=== PATIENT | male | born 1960 | race Caucasian/White ===

== ENCOUNTER → 2018-11-27 | Outpatient (CLI) | payer OTHER | LOC: CAT 08:14 | DX: Z13.6 Encounter for screening for cardiovascular disorders (principal); E78.00 Pure hypercholesterolemia, unspecified; I25.10 Atherosclerotic heart disease of native coronary artery without angina pectoris ==

== ENCOUNTER → 2019-02-01 | Outpatient (CLI) | payer BC ==
--- NOTE | 2019-02-01 11:55 | 2DMMODE ---
[facility] [address] [place] [address] 2 D/M-MODE ECHOCARDIOGRAM Name: YOLANDA MCDONALD Room #: REG [facility]#: [id number] Admission: 02/01/19 Attend Phys: Jamie Henderson MD Discharge: Date of : 62 Report #: [id number] THIS REPORT FOR: //name// APPROVED REPORT Study performed: 02/01/2019 10:29:11 EXAM: Comprehensive 2D, Doppler, and color-flow Echocardiogram Patient Location: Out-Patient Room #: Echo lab 2 Status: routine BSA: 1.81 HR: 72 bpm BP: 132/82 mmHg Rhythm: NSR Other Information Study Quality: Good Indications Elevated calcium score 2D Dimensions RVDd: 30.89 mm IVSd: 9.92 (7-11mm) LVOT Diam: 20.41 (18-24mm) LVDd: 48.61 mm PWd: 6.86 (7-11mm) Ascending Ao: 33.00 (22-36mm) LVDs: 32.15 (25-40mm) Aortic Root: 34.97 mm IVC: 14.00 mm Volumes Left Atrial Volume (Systole) Single Plane 4CH: 40.24 mL Single Plane 2CH: 50.56 mL LA ESV Index: 28.00 mL/m2 Aortic Valve AoV Peak Dejan.: 1.07 m/s AO Peak Gr.: 4.54 mmHg LVOT Max P.51 mmHg LVOT Max V: 0.94 m/s SALVATORE Vmax: 2.88 cm2 Mitral Valve E/A Ratio: 1.4 MV Decel. Time: 245.98 ms MV E Max Dejan.: 0.76 m/s [facility] [address] [place] [address] 2 D/M-MODE ECHOCARDIOGRAM Name: YOLANDA MCDONALD Room #: REG [facility]#: [id number] Admission: 02/01/19 Attend Phys: Jamie Henderson MD Discharge: Date of : 62 Report #: [id number] MV A Dejan.: 0.55 m/s MV PHT: 71.33 ms IVRT: 83.04 ms Pulmonary Valve PV Peak Dejan.: 0.96 m/s PV Peak Gr.: 3.71 mmHg Pulmonary Vein P Vein S: 0.26 m/s P Vein A: 0.25 m/s P Vein D: 0.45 m/s P Vein A Dur.: 96.9 msec P Vein S/D Ratio: 0.58 Tricuspid Valve TR Peak Dejan.: 2.32 m/s TR Peak Gr.: 21.47 mmHg PA Pressure: 26.00 mmHg Left Ventricle The left ventricle is normal size. There is normal LV segmental wall motion. There is normal left ventricular wall thickness. The left ventricular systolic function is normal. The left ventricular ejection fraction is within the normal range. LVEF is 60-65%. The left ventricular diastolic function is normal. Right Ventricle The right ventricle is normal size. The right ventricular systolic function is normal. Atria The left atrium size is normal. The right atrium size is normal. Aortic Valve The aortic valve is normal in structure. No aortic regurgitation is present. There is no aortic valvular stenosis. Mitral Valve The mitral valve is normal in structure. Mild mitral regurgitation. No evidence of mitral valve stenosis. Tricuspid Valve The tricuspid valve is normal in structure. There is mild tricuspid regurgitation. Estimated PAP 26 mmHg. There is no pulmonary hypertension. Pulmonic Valve [facility] [address] [place] [address] 2 D/M-MODE ECHOCARDIOGRAM Name: YOLANDA MCDONALD Room #: REG [facility].#: [id number] Admission: 02/01/19 Attend Phys: Jamie Henderson MD Discharge: Date of : 62 Report #: [id number] The pulmonary valve is normal in structure. There is no pulmonic valvular regurgitation. Great Vessels The aortic root is normal in size. IVC is normal in size and collapses >50% with inspiration. Pericardium There is no pericardial effusion. <Conclusion> The left ventricle is normal size. There is normal left ventricular wall thickness. The left ventricular systolic function is normal. The right ventricle is normal size. The left atrium size is normal. The aortic valve is normal in structure. Mild mitral regurgitation. There is mild tricuspid regurgitation. Estimated PAP 26 mmHg. <ELECTRONICALLY SIGNED> By: Jamie Henderson MD 02/01/19 1154 1154 1154 Jamie Henderson MD /INF
--- NOTE | 2019-02-01 12:04 | EXE ---
[facility] [place] [address] STRESS ECHOCARDIOGRAM Name: HARRYYOLANDA DEREK Room #: REG [facility]#: [id number] Admission: 02/01/19 Attend Phys: Jamie Henderson MD Discharge: Date of : 62 Report #: [id number] THIS REPORT FOR: //name// APPROVED REPORT Study performed: 02/01/2019 10:55:28 Exam: Stress Echocardiogram Indication: Elevated calcium score Patient Location: Out-Patient Stress Nurse: Marifer Méndez RN Room #: Echo lab 2 Status: routine Ht: 5 ft 8 in HR: 76 bpm BP: 132/82 mmHg Rhythm: NSR Medical History Exercise History: Physically active Procedure The patient underwent an Exercise Stress Test using the Elmer Protocol. Blood pressure, heart rate, and EKG were monitored. An Echocardiogram was performed by door technician in four stages in quad fashion. At peak stress, four selected images were obtained and placed side by side with resting images for comparison. Stress Test Details Stress Test: Exercise stress testing was performed using a Elmer protocol. HR Resting HR: 76 bpm Max Heart Rate (APMHR): 162 bpm Max HR Achieved: 169 bpm Target HR (85% APMHR): 137 bpm % of APMHR: 104 Recovery HR: 95 bpm HR response to stress: Normal HR response to stress BP Resting BP: 132/82 mmHg Max BP: 164/78 mmHg Recovery BP: 134/80 mmHg BP response to stress: Normal blood pressure response to stress. ECG [facility] [address] [place] [address] STRESS ECHOCARDIOGRAM Name: YOLANDA MCDONALD Room #: REG [facility]#: [id number] Admission: 02/01/19 Attend Phys: Jamie Henderson MD Discharge: Date of : 62 Report #: [id number] Resting ECG: Sinus Rhythm, RBBB Stress ECG: Sinus Rhythm, nonspecific ST-T abnormalities ST Change: Equivocal Clinical Reason for Termination: Maximal effort Exercise duration: 7 min 27 sec Highest Stage Achieved: Stage 3: 3.4 mph at 14% grade. Exercise capacity: 10.1 METs Overall Exercise Capacity for Age: Good Pre-Stress Echo The resting Echocardiogram showed normal left ventricular contractility with an estimated Ejection Fraction of about 55-60%. The resting echocardiogram demonstrated normal wall motion in all wall segments. Normal wall motion in all segments on baseline images. Post-Stress Echo The stress Echocardiogram showed normal left ventricular contractility with an estimated Ejection Fraction of about 65-70%. Compared to rest, there were no stress-induced wall motion abnormalities. Normal augmentation of wall motion in all segments on post stress images. Clinical No clinical evidence for ischemia. Conclusion Clinical Response: Non-ischemic Exercise Capacity: Average Stress ECG Response: Equivocal Stress Echo Images: Non-ischemic The left ventricle is normal in size and wall thickness in both the rest and stress images. No prior study available for comparison. Other Information Study Quality: Good <Conclusion> [facility] [address] [place] [address] STRESS ECHOCARDIOGRAM Name: YOLANDA MCDONALD Room #: REG [facility].#: [id number] Admission: 02/01/19 Attend Phys: Jamie Henderson MD Discharge: Date of : 62 Report #: [id number] The left ventricle is normal in size and wall thickness in both the rest and stress images. <ELECTRONICALLY SIGNED> By: Jamie Henderson MD 02/01/193 02 02 Jamie Henderson MD /INF
== END ==
LOC: CV 09:53
DX: I08.1 Rheumatic disorders of both mitral and tricuspid valves (principal)